=== PATIENT | male | born 1965 | race Caucasian/White ===

== ENCOUNTER 2017-05-30 09:32 | Emergency (ER) | payer SELFPAY ==
--- NOTE | 2017-05-30 10:35 | ER Document Report ---
ED ENT - General Chief Complaint: Ear Pain Stated Complaint: EAR PAIN Time Seen by Provider: 05/30/17 10:25 Notes: 51 yo male c/o right ear pain x 2 days TRAVEL OUTSIDE OF THE [place] IN LAST 30 DAYS: No - HPI Patient complains to provider of: Ear problem Onset/Duration: Gradual, Persistent, Worse Quality of pain: Achy, Stabbing Pain Level: 4 Location of pain: Ears - right Associated symptoms: Ear pain, Tinnitus. denies: Chills, Congestion, Dental pain, Dizziness, Ear drainage, Runny nose, Stiff neck Similar symptoms previously: No Recently seen / treated by doctor: No - Related Data Allergies/Adverse Reactions: No Known Allergies Allergy (Verified 05/30/17 09:35) Past Medical History - General Information source: Patient - Social History Smoking Status: Never Smoker Frequency of alcohol use: Social Drug Abuse: None Lives with: Family Family History: Reviewed & Not Pertinent - Medical History Medical History: Negative Renal/ Medical History: Denies: Hx Peritoneal Dialysis - Immunizations Hx Diphtheria, Pertussis, Tetanus Vaccination: Yes Review of Systems - Review of Systems Constitutional: No symptoms reported EENT: See HPI Cardiovascular: No symptoms reported Respiratory: No symptoms reported Gastrointestinal: No symptoms reported Genitourinary: No symptoms reported Male Genitourinary: No symptoms reported Musculoskeletal: No symptoms reported Skin: No symptoms reported Hematologic/Lymphatic: No symptoms reported Neurological/Psychological: No symptoms reported Physical Exam - Vital signs Vitals: Temp Pulse Resp BP Pulse Ox 98.9 F 90 18 185/83 H 99 05/30/17 09:34 05/30/17 09:34 05/30/17 09:34 05/30/17 09:34 05/30/17 09:34 Interpretation: Normal - General General appearance: Appears well, Alert - HEENT Head: Normocephalic, Atraumatic Eyes: Normal Conjunctiva: Normal Pupils: PERRL Ears: Pinna tenderness - right, Tragus tenderness - right, Other - + pre/ppst auricular tenderness. no mastoid tenderness External canal: Erythema, Swollen - right Tympanic membrane: Injected - right, Loss of landmarks - right Sinus: Normal Mucous membranes: Normal, Moist Pharynx: Normal Neck: Normal, Supple - Respiratory Respiratory status: No respiratory distress Chest status: Nontender Breath sounds: Normal Chest palpation: Normal - Cardiovascular Rhythm: Regular Heart sounds: Normal auscultation Murmur: No - Abdominal Inspection: Normal Distension: No distension Bowel sounds: Normal Tenderness: Nontender Organomegaly: No organomegaly - Back Back: Normal, Nontender - Extremities General upper extremity: Normal inspection, Nontender, Normal color, Normal ROM , Normal temperature General lower extremity: Normal inspection, Nontender, Normal color, Normal ROM , Normal temperature, Normal weight bearing. No: Mg's sign - Neurological Neuro grossly intact: Yes Cognition: Normal Orientation: AAOx4 Anisa Coma Scale Eye Opening: Spontaneous Reading Coma Scale Verbal: Oriented Reading Coma Scale Motor: Obeys Commands Reading Coma Scale Total: 15 Speech: Normal Motor strength normal: LUE, RUE, LLE, RLE Sensory: Normal - Psychological Associated symptoms: Normal affect, Normal mood - Skin Skin Temperature: Warm Skin Moisture: Dry Skin Color: Normal Course - Re-evaluation Re-evalutation: 05/30/17 10:32 51 yo male with H&P c/w acute external otitis media and otitis media. low suspicion for mastoiditis, temporal arteritis. will treat with topical and oral antibiotic and pain medication. pt stable for discharge and agreeable with plan - Vital Signs Vital signs: Temp Pulse Resp BP Pulse Ox 98.9 F 90 18 185/83 H 99 05/30/17 09:34 05/30/17 09:34 05/30/17 09:34 05/30/17 09:34 05/30/17 09:34 Discharge - Discharge Clinical Impression: Acute right otitis media External otitis Qualifiers: Otitis externa type: unspecified type Chronicity: acute Laterality: right Qualified Code(s): H60.501 - Unspecified acute noninfective otitis externa, right ear Instructions: Antibiotic Therapy ([facility]), Use of Ear Drops ([facility]), Oral Narcotic Medication ([facility]), Otitis Media ([facility]) Additional Instructions: please take medications as prescribed follow up with primary care if symptoms persist return to ER for any worsening Prescriptions: Amoxicillin 500 mg PO TID #21 tablet Oxycodone HCl/Acetaminophen [Percocet 5-325 mg Tablet] 1 - 2 tab PO ASDIR PRN # 15 tablet PRN Reason: Tobramycin 2 - 3 drop RT_EAR Q4H #1 bottle
[2017-05-30 10:52] VITALS: BP 143/88
== END 2017-05-30 10:51 | disposition home or self-care (01) ==
LOC: ER 09:32
DX: H60.501 Unspecified acute noninfective otitis externa, right ear (principal); H92.01 Otalgia, right ear
CPT/HCPCS: 99282